=== PATIENT | female | born 1975 | race Caucasian/White ===

== ENCOUNTER 2019-12-02 00:11 | Outpatient (CLI) | payer OTHER, SELFPAY ==
[2019-12-02 16:18] LABS: SARS-CoV-2 RNA PCR Negative
== END 2019-12-02 00:12 | disposition home or self-care (01) ==
PROVIDERS: Visit Provider Surgery Plastic and Reconstructive Surgery
DX: Z01.818 Encounter for other preprocedural examination (principal); Z11.59 Encounter for screening for other viral diseases
CPT/HCPCS: 87635; U0003

== ENCOUNTER 2019-12-05 00:21 | Day surgery (SDC) | payer OTHER, SELFPAY ==
[2019-11-28 14:52] VITALS: BMI 20.9
[2019-12-05] VITALS (7 sets, daily range): BP systolic 97–129; BP diastolic 67–88; PULSE 75–114; RESP 14–20; TEMP 36.8–37.2; O2SAT 100
--- NOTE | 2019-12-05 05:52 | ECG_ITS ---
Measurements Intervals [place] Rate: 101 P: 81 OK: 153 QRS: 77 QRSD: 86 T: 54 QT: 343 QTc: 445 Interpretive Statements SINUS TACHYCARDIA BORDERLINE ECG Electronically Signed On 12-05-2019 7:15:21 CDT by Mark Larios D.O.
[2019-12-05] MEDS: LACTATED RINGERS 1,000 ML 30 ML IV CONT (06:20)
[2019-12-05 06:37] LABS: Blood Urea Nitrogen 9 mg/dL (7-17); Calcium 9.4 mg/dL (8.4-10.2); Carbon Dioxide 26 mmol/L (22-30); Chloride 99 mmol/L (98-107); Estimated CRCL calculation 80 ml/min; Estimated Glomerular Filt Rate > 60; Glucose 96 mg/dL (65-105); Sodium 138 mmol/L (137-145)
--- NOTE | 2019-12-05 06:46 | PM.IMHP ---
H&P: HPI History of Present Illness Chief complaint: hx of breast augmentation Narrative: Mercy Villarreal is a 44 year old female who is interested in implant removal. We have previously ruptured her implants. She is happy and would like to proceed. Review of Systems Review of Systems: All systems reviewed & are unremarkable except as noted in HPI and below [facility] Social History Social History (Updated 08/30/19 @ 14:22 by Lois Weir) Smoking status: Former smoker Tobacco type: cigarettes Alcohol intake: never Gender identity (if verbalized by the patient): Female Meds Home Medications and Allergies Home Medications Medication Instructions Recorded Confirmed Type cariprazine 3 mg capsule 3 mg PO DAILY 08/30/19 12/05/19 History desvenlafaxine succinate 100 mg 100 mg PO DAILY 08/30/19 12/05/19 History tablet,extended release 24 hr spironolactone 100 mg tablet 100 mg PO BID 08/30/19 12/05/19 History dextroamphetamine-amphetamine 20 mg PO DAILY 11/28/19 12/05/19 History [Adderall] temazepam [Restoril] 22.5 mg PO DAILY 11/28/19 12/05/19 History Allergies Allergy/AdvReac Type Severity Reaction Status Date / Time No Known Allergies Allergy Unverified 11/28/19 14:57 Vital Signs Vital Signs - 24 hr 12/05/19 06:29 Temperature 36.8 C Pulse Rate 80 Respiratory Rate 16 Blood Pressure 129/88 Pulse Oximetry 100 Exam Narrative: Exam Narrative: Bilateral breast implants ruptured Const: General: comfortable, no acute distress, alert and awake; No acute distress Orientation/consciousness: oriented to person HENMT: Head: normal to inspection Ears: external ears normal General nose exam: Normal external nose present Face and sinus: normal facial exam Eyes: General: appearance normal, both eyes and all related structures Periorbital: periorbital findings normal Eyelids: eyelids normal Conjunctivae: conjunctivae normal Neck: Neck: normal visual inspection Chest: Chest palpation & inspection: normal inspection of the chest Resp: Effort & Inspection: normal respiratory effort and able to speak in complete sentences GI: Inspection: normal to inspection Neuro: General: oriented to person Psych: Appearance: grossly normal Mental Status: mental status grossly normal H&P: Results Labs Labs: [facility] 12/05/19 06:13 Sodium 138 Potassium 4.0 Chloride 99 Carbon Dioxide 26 BUN 9 Creatinine 0.70 Glucose 96 Calcium 9.4 Assessment and Plan Assessment and plan (1) Encounter for cosmetic surgery: Code(s): Z41.1 - Encounter for cosmetic surgery Status: Acute Assessment and Plan: She has decided she would like to proceed with bilateral implant removal. She is happy with the current appearance and understands with the implant out it could look worse. If she is unhappy with the cosmetic appearance she would proceed with additional treatment at her cost in the future. Risks, benefits, alternatives were discussed in extensive detail. I want to be very realistic about the risks involved as well as expectations. Reviewed consent in detail. Discussed aftercare and what to monitor for. Made sure I answered all questions answered to satisfaction and consent obtained. (2) History of breast augmentation: Code(s): Z98.82 - Breast implant status Status: Acute
--- NOTE | 2019-12-05 06:56 | WPDANESEPPF ---
Anes - Initial Pre Proc Eval Procedure: Operation Date: 12/05/19 07:30 Proposed Procedures p Removal Bilateral Breast Implants - Hung Bosch MD Date/Time: 12/05/19 06:56 Surgeon: Hung Bosch MD Pre Op Diagnosis: hx of breast augmentation Patient Data Age: 44 Gender: F Height: 5 ft 6 in Weight: 58.7 kg Last Vital Signs Temp 36.8 C 12/05/19 06:29 Pulse 80 12/05/19 06:29 Resp 16 12/05/19 06:29 BP 129/88 12/05/19 06:29 Pulse Ox 100 12/05/19 06:29 Allergies Allergy/AdvReac Type Severity Reaction Status Date / Time No Known Allergies Allergy Unverified 11/28/19 14:57 Home Medications Medication Instructions Recorded Confirmed Type cariprazine 3 mg capsule 3 mg PO DAILY 08/30/19 12/05/19 History desvenlafaxine succinate 100 mg 100 mg PO DAILY 08/30/19 12/05/19 History tablet,extended release 24 hr spironolactone 100 mg tablet 100 mg PO BID 08/30/19 12/05/19 History dextroamphetamine-amphetamine 20 mg PO DAILY 11/28/19 12/05/19 History [Adderall] temazepam [Restoril] 22.5 mg PO DAILY 11/28/19 12/05/19 History Laboratory Tests 12/05/19 06:13 Sodium 138 mmol/L mmol/L (137-145) Potassium 4.0 mmol/L mmol/L (3.4-5.0) Chloride 99 mmol/L mmol/L (98-107) Carbon Dioxide 26 mmol/L mmol/L (22-30) BUN 9 mg/dL mg/dL (7-17) Creatinine 0.70 mg/dL mg/dL (0.7-1.0) Estim Creat Clear Calc 80 ml/min ml/min Estimated GFR > 60 (59 - ) Glucose 96 mg/dL mg/dL (65-105) Calcium 9.4 mg/dL mg/dL (8.4-10.2) Patient hx anesthesia problems: none Family hx anesthesia problems: none PMFSH Past Medical History Medical History Anxiety Depression Surgical History Surgical History History of breast augmentation Social History Social History Smoking status: Former smoker Tobacco type: cigarettes Alcohol intake: never Gender identity (if verbalized by the patient): Female Anes - Eval Final PreProcedure Day of Procedure 12/05/19 06:56 Patient weight: normal Heart: regular rate and rhythm Lungs: clear to auscultation Airway: Mallampati scale class II Neurological: alert and oriented Last oral intake: >/= 8 hours ASA classification: II Emergent: no Anesthetic plan: proceed Anesthesia type and monitoring: general LMA and standard monitoring Informed Consent: The patient's anesthetic plan and its attendant risks and benefits were discussed with the patient/family/POA. Questions were solicited and answers provided to the satisfaction of the patient/family/POA.
[2019-12-05] MEDS: LIDO 1%/EPINEPHRINE 1:100,000 20 ML VIAL 30 ML INFILTRATE (07:22)
[2019-12-05] MEDS: ceFAZolin 2 GM/D5W 50 ML 2 GM/50 ML BAG IVPB (07:22)
--- NOTE | 2019-12-05 08:08 | SUR.OPER ---
EBL:5cc
--- NOTE | 2019-12-05 08:26 | PM.PROC ---
Procedure Note - Detailed Date of procedure: 12/05/19 Pre-op diagnosis: hx of breast augmentation Post-op diagnosis: same Procedure performed: Removal bilateral breast implants Description of procedure: Patient was marked in the preoperative holding area with her verification. She was taken to the operating room placed supine on the operating room table. Anesthesia provided by anesthesiology and prepped and draped in a standard sterile fashion. 1% lidocaine and 0.25% Marcaine with epinephrine was used to provide a field block. A 15 blade used to excise the previous scar. Dissection was continued down until I saw the implants which were smooth implants and completely removed. I irrigated with 1500 cc per side of saline solution (3 L total volume). I then placed 15 Doug drains bilaterally which were brought out towards the axilla and sutured into place with 3-0 nylon. I closed with 2-0 Vicryl followed by 3-0 Monocryl in a running subcuticular 4-0 Monocryl. Tissue glue was final closure. Fluffs and a surgical bra were placed. Patient was awoke and taken to the PACU without difficulty. All instrument sponge counts were correct at the end of the case. Anesthesia: GLMA Surgeon: Hung Bosch MD Estimated blood loss (mL): 5 Drains: Yes (Bilateral Doug) Packing: No Pathology: none sent Complications: No immediate complications Condition: stable Disposition: PACU Findings: No abnormal findings identified.
--- NOTE | 2019-12-05 08:43 | SUR.PHASEI ---
0842; PT HR LOW 100's. STACH. DR HARDY NOTIFIED. PREOP HR 80. NO NEW ORDERS. PT ASYMPTOMATIC.
== END 2019-12-05 09:55 | disposition home or self-care (01) ==
PROVIDERS: Visit Provider Surgery Plastic and Reconstructive Surgery
PROC: 0HPT0JZ Removal of Synthetic Substitute from Right Breast, Open Approach (ICD-10-PCS; CPT 19328; principal; 2019-12-05 07:30)
DX: Z45.812 Encounter for adjustment or removal of left breast implant (principal); Z45.811 Encounter for adjustment or removal of right breast implant; F41.8 Other specified anxiety disorders; Z87.891 Personal history of nicotine dependence
CPT/HCPCS: 19328; 36415; 80048; 93005; J0131; J0690; J2001; J2250; J2405; J2704; J3010; J7120